=== PATIENT | male | born 1970 | race Native Hawaiian/Other Pacific Islander ===

== ENCOUNTER 2018-10-29 11:33 | Emergency (ER) | payer OTHER, SELFPAY ==
[2018-10-29 11:38] VITALS: BP 162/99; PULSE 90; RESP 14; TEMP 36.6; O2SAT 99
--- NOTE | 2018-10-29 12:18 | ED.HA ---
HPI - Headache <YADIEL HughesP-BC - Last Filed: 10/29/18 18:59> General Chief Complaint: Headache Stated Complaint: Migraine,Nausea Time Seen by Provider: 10/29/18 12:07 Source: patient and family Mode of arrival: ambulatory Limitations: no limitations History of Present Illness HPI Narrative: The patient is a 48-year-old male nonsmoker with history of migraine who presents with a chief complaint of migraine since Monday. He was recently diagnosed with strep throat treated with amoxicillin. This started on . He presents today with his . He complains of photophobia, phonophobia, nausea and vomiting. he denies any thunderclap sensation, altered mental status or confusion. notes generalized weakness and fatigue. Modalities to home attempted include Imitrex, Percocet, and Fioricet. denies any confusion, states he is acting appropriately. Related Data Home Medications Medication Instructions Recorded Confirmed oxycodone-acetaminophen [Percocet] 1 tab PO PRN PRN #0 08/13/17 10/29/18 acetaminophen [Mapap 650 mg PO TID PRN 10/29/18 10/29/18 (acetaminophen)] amoxicillin 500 mg PO [id number] 10/29/18 10/29/18 [id number]-rxzhdvdraaqjh-buxl 1 tab PO Q4H PRN 10/29/18 10/29/18 ergocalciferol (vitamin D2) 50,000 units PO QWEEK 10/29/18 10/29/18 fluticasone propionate [Flonase 2 spray INTRANASAL DAILY 10/29/18 10/29/18 Allergy Relief] gabapentin 100 - 300 mg PO BEDTIME 10/29/18 10/29/18 ibuprofen 800 mg PO TID 10/29/18 10/29/18 lidocaine 1 patch TOPICAL DAILY 10/29/18 10/29/18 lidocaine HCl [Lidocaine Viscous] 1 dose PO DIRECTED 10/29/18 10/29/18 losartan 100 mg PO DAILY 10/29/18 10/29/18 sumatriptan succinate 6 mg SUBCUT PRN PRN 10/29/18 10/29/18 Previous Rx's Medication Instructions Recorded ketorolac 10 mg PO Q6H PRN 2 Days #8 tab 10/29/18 ondansetron 4 mg PO TID-QID PRN #20 tab 10/29/18 Allergies Allergy/AdvReac Type Severity Reaction Status Date / Time codeine Allergy Intermediate HIVES Verified 10/29/18 11:41 Review of Systems <CLEMENTE Hughes - Last Filed: 10/29/18 18:59> Review of Systems GENERAL: Denies chills, fatigue, malaise, fever, sweats. HEENT: Denies sinus pain, ear pain, sore throat, difficulty swallowing, dizziness. RESPIRATORY: Denies dyspnea, cough, wheezing, hemoptysis, sputum. CARDIOVASCULAR: Denies chest pain, palpitations, orthopnea, edema, GASTROINTESTINAL: See HPI : Denies dysuria, frequency, incontinence, hematuria, urinary retention. MUSCULOSKELETAL: denies weakness, joint pain, or bony pain SKIN: Denies rash, skin lesions, or other NEUROLOGIC: See HPI PSYCHIATRIC: No concerning psychosocial issues. 12 point review of systems is negative except for those stated above PFSH <CLEMENTE Hughes - Last Filed: 10/29/18 18:59> Social History Smoking Status: Never smoker Social History Smoking Status: Never smoker Exam <CLEMENTE Hughes - Last Filed: 10/29/18 18:59> Narrative Exam Narrative: GENERAL: This is a well-nourished, well-developed patient, lying in a dark room HEAD: Atraumatic. Normocephalic. No temporal or scalp tenderness. EYES: Pupils equal round and reactive. Extraocular motions intact. No scleral icterus. No injection or drainage. no nystagmus. ENT: Nose without bleeding, purulent drainage or septal hematoma. Throat without erythema, tonsillar hypertrophy or exudate. Uvula midline. Airway patent. NECK: Trachea midline. No JVD or lymphadenopathy. Supple, nontender, no meningeal signs. CARDIOVASCULAR: Regular rate and rhythm without murmurs, gallops, or rubs. RESPIRATORY: Clear to auscultation. Breath sounds equal bilaterally. No wheezes, rales, or rhonchi. No cough. No increased respiratory effort. GASTROINTESTINAL: Abdomen soft, non-tender, nondistended. No hepato-splenomegaly, or palpable masses. No guarding. EXTREMITIES: No clubbing, cyanosis, or edema. No joint tenderness, effusion, or edema noted. BACK: Nontender without deformity or crepitance. No flank tenderness. NEURO: AOx3. Strength is equal upper and lower extremities bilaterally. Stable gait. No gross cranial nerve deficit. SKIN: No rash or erythema. Initial Vital Signs Initial Vital Signs: Vital Signs Temperature 97.9 F 10/29/18 11:38 Pulse Rate 90 10/29/18 11:38 Respiratory Rate 14 10/29/18 11:38 Blood Pressure 162/99 H 10/29/18 11:38 Pulse Oximetry 99 10/29/18 11:38 <Florinda Chance DO - Last Filed: 10/29/18 20:07> Initial Vital Signs Initial Vital Signs: Vital Signs Temperature 97.9 F 10/29/18 11:38 Pulse Rate 90 10/29/18 11:38 Respiratory Rate 14 10/29/18 11:38 Blood Pressure 162/99 H 10/29/18 11:38 Pulse Oximetry 99 10/29/18 11:38 Course <CLEMENTE Hughes - Last Filed: 10/29/18 18:59> Orders Ordered: Discontinued Medications Dexamethasone (Decadron) 10 mg IV NOW ONE Stop: 10/29/18 13:38 Last Admin: 10/29/18 13:44 Dose: 10 mg Diphenhydramine HCl (Benadryl) 50 mg IV NOW ONE Stop: 10/29/18 12:18 Last Admin: 10/29/18 12:31 Dose: 50 mg Sodium Chloride (Normal Saline 0.9%) 1,000 mls @ 1,000 mls/hr IV BOLUS ONE Stop: 10/29/18 13:16 Last Infusion: 10/29/18 13:48 Dose: 0 mls/hr Admin: 10/29/18 12:31 Dose: 1,000 mls/hr Ketorolac Tromethamine (Toradol) 30 mg IV NOW ONE Stop: 10/29/18 12:18 Last Admin: 10/29/18 12:31 Dose: 30 mg Metoclopramide HCl (Reglan) 10 mg IV NOW ONE Stop: 10/29/18 12:18 Last Admin: 10/29/18 12:31 Dose: 10 mg Sumatriptan Succinate (Imitrex) 6 mg SUBCUT NOW ONE Stop: 10/29/18 14:53 Last Admin: 10/29/18 15:01 Dose: 6 mg Vital Signs - 8 hr 10/29/18 13:11 10/29/18 14:00 10/29/18 15:00 Pulse Rate 77 73 61 Respiratory Rate 18 17 14 Blood Pressure Blood Pressure [Left Arm] 143/107 H 147/104 H 138/61 Pulse Oximetry 98 99 99 10/29/18 15:55 Pulse Rate 85 Respiratory Rate 18 Blood Pressure 156/106 H Blood Pressure [Left Arm] Pulse Oximetry 98 <Florinda Chance DO - Last Filed: 10/29/18 20:07> Orders Ordered: Discontinued Medications Dexamethasone (Decadron) 10 mg IV NOW ONE Stop: 10/29/18 13:38 Last Admin: 10/29/18 13:44 Dose: 10 mg Diphenhydramine HCl (Benadryl) 50 mg IV NOW ONE Stop: 10/29/18 12:18 Last Admin: 10/29/18 12:31 Dose: 50 mg Sodium Chloride (Normal Saline 0.9%) 1,000 mls @ 1,000 mls/hr IV BOLUS ONE Stop: 10/29/18 13:16 Last Infusion: 10/29/18 13:48 Dose: 0 mls/hr Admin: 10/29/18 12:31 Dose: 1,000 mls/hr Ketorolac Tromethamine (Toradol) 30 mg IV NOW ONE Stop: 10/29/18 12:18 Last Admin: 10/29/18 12:31 Dose: 30 mg Metoclopramide HCl (Reglan) 10 mg IV NOW ONE Stop: 10/29/18 12:18 Last Admin: 10/29/18 12:31 Dose: 10 mg Sumatriptan Succinate (Imitrex) 6 mg SUBCUT NOW ONE Stop: 10/29/18 14:53 Last Admin: 10/29/18 15:01 Dose: 6 mg Vital Signs - 8 hr 10/29/18 13:11 10/29/18 14:00 10/29/18 15:00 Pulse Rate 77 73 61 Respiratory Rate 18 17 14 Blood Pressure Blood Pressure [Left Arm] 143/107 H 147/104 H 138/61 Pulse Oximetry 98 99 99 0415/19 15:55 Pulse Rate 85 Respiratory Rate 18 Blood Pressure 156/106 H Blood Pressure [Left Arm] Pulse Oximetry 98 MDM - Headache <MARIO Hughes- - Last Filed: 10/29/18 18:59> [facility] Narrative Medical decision making narrative: The patient is a 48-year-old male with history of migraines who presents with a chief complaint of a headache. he was treated in the emergency department with IV fluid, Toradol, Reglan, Benadryl as well as dexamethasone. His headache did not resolve with this initial cocktail, so he was given Imitrex and his headache resolved. He was neurologically intact. I discussed at length with the patient and his of trying to avoid imaging in patients with repeated migraines. They were okay with this. Given that he had no red flag symptoms, I am okay with this. I discussed at length monitor for confusion, altered mental status or any red flag symptoms. patient was given a prescription of Toradol as well as Zofran. Discussed at length not combining Toradol with other NSAIDs. Patient and had no questions or concerns upon discharge. Discharge Plan Departure Patient Disposition: Home Clinical Impression: Migraine headache Qualifiers: Migraine type: unspecified Status migrainosus presence: with status migrainosus Intractability: not intractable Qualified Code(s): G43.901 - Migraine, unspecified, not intractable, with status migrainosus Discharge Date/Time: 10/29/18 16:04 Interventions: ED Discharge Assessment Last Done: 10/29/18 15:55 Instructions: DI for Migraine, DI for Headache Activity Restrictions/Additional Instructions: Today we treated your migraine with Toradol, Benadryl, Reglan and Imitrex. I have given you prescription for Toradol. This is an NSAID to take for headache. do not take it with other NSAIDs such as indomethacin or Aleve or ibuprofen. I have given you Zofran for nausea. Please follow up with your primary care provider or your headache specialist as soon as possible. Come back to the emergency department for any acute concerns such as chest pain, shortness of breath or confusion. Prescriptions: New ketorolac 10 mg tablet 10 mg PO Q6H PRN (Reason: pain) 2 Days Qty: 8 RF: 0 ondansetron 4 mg tablet,disintegrating 4 mg PO TID-QID PRN (Reason: nausea and vomiting) Qty: 20 RF: 0 No Action oxycodone-acetaminophen [Percocet] 5 MG/325 MG tablet 1 tab PO PRN PRN (Reason: pain ) Qty: 0 RF: 0 amoxicillin 500 mg capsule 500 mg PO [id number] RF: 0 acetaminophen [Mapap (acetaminophen)] 325 mg tablet 650 mg PO TID PRN (Reason: Fever Or Pain) RF: 0 ibuprofen 800 mg tablet 800 mg PO TID RF: 0 sumatriptan succinate 6 mg/0.5 mL cartridge 6 mg subcut PRN PRN (Reason: Migraine Headache) RF: 0 vbzjrlxlxu-srljgipxnqjzd-zchc 50-325-40 mg tablet 1 tab PO Q4H PRN (Reason: as directed) RF: 0 lidocaine 5 % adhesive patch,medicated 1 patch topical DAILY RF: 0 lidocaine HCl [Lidocaine Viscous] 2 % solution 1 dose PO DIRECTED RF: 0 gabapentin 100 mg capsule 100 - 300 mg PO BEDTIME RF: 0 ergocalciferol (vitamin D2) 50,000 unit capsule 50,000 units PO QWEEK RF: 0 losartan 100 mg Tablet 100 mg PO DAILY RF: 0 fluticasone propionate [Flonase Allergy Relief] 50 mcg/actuation [place],Suspension 2 spray INTRANASAL DAILY RF: 0 Referrals: Evelyn Vidal DO [Primary Care Provider] - <Florinda Chance DO - Last Filed: 10/29/18 20:07> Cosign ED Attending Jessicaature Attestation: I was immediately available in the department for consultation. This documentation has been reviewed and I agree with assessment and plan. Supervised by Florinda Chance DO
--- NOTE | 2018-10-29 12:22 | ED_ITS ---
HPI - Headache <YADIEL HughesP-BC - Last Filed: 10/29/18 18:59> General Chief Complaint: Headache Stated Complaint: Migraine,Nausea Time Seen by Provider: 10/29/18 12:07 Source: patient and family Mode of arrival: ambulatory Limitations: no limitations History of Present Illness HPI Narrative: The patient is a 48-year-old male nonsmoker with history of migraine who presents with a chief complaint of migraine since Monday. He was recently diagnosed with strep throat treated with amoxicillin. This started on . He presents today with his . He complains of photophobia, phonophobia, nausea and vomiting. he denies any thunderclap sensation, altered mental status or confusion. notes generalized weakness and fatigue. Modalities to home attempted include Imitrex, Percocet, and Fioricet. denies any confusion, states he is acting appropriately. Related Data Home Medications Medication Instructions Recorded Confirmed oxycodone-acetaminophen [Percocet] 1 tab PO PRN PRN #0 08/13/17 10/29/18 acetaminophen [Mapap 650 mg PO TID PRN 10/29/18 10/29/18 (acetaminophen)] amoxicillin 500 mg PO [id number] 10/29/18 10/29/18 [id number]-[id number]-nbgm 1 tab PO Q4H PRN 10/29/18 10/29/18 ergocalciferol (vitamin D2) 50,000 units PO QWEEK 10/29/18 10/29/18 fluticasone propionate [Flonase 2 spray INTRANASAL DAILY 10/29/18 10/29/18 Allergy Relief] gabapentin 100 - 300 mg PO BEDTIME 10/29/18 10/29/18 ibuprofen 800 mg PO TID 10/29/18 10/29/18 lidocaine 1 patch TOPICAL DAILY 10/29/18 10/29/18 lidocaine HCl [Lidocaine Viscous] 1 dose PO DIRECTED 10/29/18 10/29/18 losartan 100 mg PO DAILY 10/29/18 10/29/18 sumatriptan succinate 6 mg SUBCUT PRN PRN 10/29/18 10/29/18 Previous Rx's Medication Instructions Recorded ketorolac 10 mg PO Q6H PRN 2 Days #8 tab 10/29/18 ondansetron 4 mg PO TID-QID PRN #20 tab 10/29/18 Allergies Allergy/AdvReac Type Severity Reaction Status Date / Time codeine Allergy Intermediate HIVES Verified 10/29/18 11:41 Review of Systems <CLEMENTE Hughes - Last Filed: 10/29/18 18:59> Review of Systems GENERAL: Denies chills, fatigue, malaise, fever, sweats. HEENT: Denies sinus pain, ear pain, sore throat, difficulty swallowing, dizziness. RESPIRATORY: Denies dyspnea, cough, wheezing, hemoptysis, sputum. CARDIOVASCULAR: Denies chest pain, palpitations, orthopnea, edema, GASTROINTESTINAL: See HPI : Denies dysuria, frequency, incontinence, hematuria, urinary retention. MUSCULOSKELETAL: denies weakness, joint pain, or bony pain SKIN: Denies rash, skin lesions, or other NEUROLOGIC: See HPI PSYCHIATRIC: No concerning psychosocial issues. 12 point review of systems is negative except for those stated above PFSH <CLEMENTE Hughes - Last Filed: 10/29/18 18:59> Social History Smoking Status: Never smoker Social History Smoking Status: Never smoker Exam <CLEMENTE Hughes - Last Filed: 10/29/18 18:59> Narrative Exam Narrative: GENERAL: This is a well-nourished, well-developed patient, lying in a dark room HEAD: Atraumatic. Normocephalic. No temporal or scalp tenderness. EYES: Pupils equal round and reactive. Extraocular motions intact. No scleral icterus. No injection or drainage. no nystagmus. ENT: Nose without bleeding, purulent drainage or septal hematoma. Throat without erythema, tonsillar hypertrophy or exudate. Uvula midline. Airway patent. NECK: Trachea midline. No JVD or lymphadenopathy. Supple, nontender, no meningeal signs. CARDIOVASCULAR: Regular rate and rhythm without murmurs, gallops, or rubs. RESPIRATORY: Clear to auscultation. Breath sounds equal bilaterally. No wheezes, rales, or rhonchi. No cough. No increased respiratory effort. GASTROINTESTINAL: Abdomen soft, non-tender, nondistended. No hepato- splenomegaly, or palpable masses. No guarding. EXTREMITIES: No clubbing, cyanosis, or edema. No joint tenderness, effusion, or edema noted. BACK: Nontender without deformity or crepitance. No flank tenderness. NEURO: AOx3. Strength is equal upper and lower extremities bilaterally. Stable gait. No gross cranial nerve deficit. SKIN: No rash or erythema. Initial Vital Signs Initial Vital Signs: Vital Signs Temperature 97.9 F 10/29/18 11:38 Pulse Rate 90 10/29/18 11:38 Respiratory Rate 14 10/29/18 11:38 Blood Pressure 162/99 H 10/29/18 11:38 Pulse Oximetry 99 10/29/18 11:38 <Florinda Chance DO - Last Filed: 10/29/18 20:07> Initial Vital Signs Initial Vital Signs: Vital Signs Temperature 97.9 F 10/29/18 11:38 Pulse Rate 90 10/29/18 11:38 Respiratory Rate 14 10/29/18 11:38 Blood Pressure 162/99 H 10/29/18 11:38 Pulse Oximetry 99 10/29/18 11:38 Course <CLEMENTE Hughes - Last Filed: 10/29/18 18:59> Orders Ordered: Discontinued Medications Dexamethasone (Decadron) 10 mg IV NOW ONE Stop: 10/29/18 13:38 Last Admin: 10/29/18 13:44 Dose: 10 mg Diphenhydramine HCl (Benadryl) 50 mg IV NOW ONE Stop: 10/29/18 12:18 Last Admin: 10/29/18 12:31 Dose: 50 mg Sodium Chloride (Normal Saline 0.9%) 1,000 mls @ 1,000 mls/hr IV BOLUS ONE Stop: 10/29/18 13:16 Last Infusion: 10/29/18 13:48 Dose: 0 mls/hr Admin: 10/29/18 12:31 Dose: 1,000 mls/hr Ketorolac Tromethamine (Toradol) 30 mg IV NOW ONE Stop: 10/29/18 12:18 Last Admin: 10/29/18 12:31 Dose: 30 mg Metoclopramide HCl (Reglan) 10 mg IV NOW ONE Stop: 10/29/18 12:18 Last Admin: 10/29/18 12:31 Dose: 10 mg Sumatriptan Succinate (Imitrex) 6 mg SUBCUT NOW ONE Stop: 10/29/18 14:53 Last Admin: 10/29/18 15:01 Dose: 6 mg Vital Signs - 8 hr 10/29/18 13:11 10/29/18 14:00 10/29/18 15:00 Pulse Rate 77 73 61 Respiratory Rate 18 17 14 Blood Pressure Blood Pressure [Left Arm] 143/107 H 147/104 H 138/61 Pulse Oximetry 98 99 99 10/29/18 15:55 Pulse Rate 85 Respiratory Rate 18 Blood Pressure 156/106 H Blood Pressure [Left Arm] Pulse Oximetry 98 <Florinda Chance DO - Last Filed: 10/29/18 20:07> Orders Ordered: Discontinued Medications Dexamethasone (Decadron) 10 mg IV NOW ONE Stop: 10/29/18 13:38 Last Admin: 10/29/18 13:44 Dose: 10 mg Diphenhydramine HCl (Benadryl) 50 mg IV NOW ONE Stop: 10/29/18 12:18 Last Admin: 10/29/18 12:31 Dose: 50 mg Sodium Chloride (Normal Saline 0.9%) 1,000 mls @ 1,000 mls/hr IV BOLUS ONE Stop: 10/29/18 13:16 Last Infusion: 10/29/18 13:48 Dose: 0 mls/hr Admin: 10/29/18 12:31 Dose: 1,000 mls/hr Ketorolac Tromethamine (Toradol) 30 mg IV NOW ONE Stop: 10/29/18 12:18 Last Admin: 10/29/18 12:31 Dose: 30 mg Metoclopramide HCl (Reglan) 10 mg IV NOW ONE Stop: 10/29/18 12:18 Last Admin: 10/29/18 12:31 Dose: 10 mg Sumatriptan Succinate (Imitrex) 6 mg SUBCUT NOW ONE Stop: 10/29/18 14:53 Last Admin: 10/29/18 15:01 Dose: 6 mg Vital Signs - 8 hr 10/29/18 13:11 10/29/18 14:00 10/29/18 15:00 Pulse Rate 77 73 61 Respiratory Rate 18 17 14 Blood Pressure Blood Pressure [Left Arm] 143/107 H 147/104 H 138/61 Pulse Oximetry 98 99 99 0415/19 15:55 Pulse Rate 85 Respiratory Rate 18 Blood Pressure 156/106 H Blood Pressure [Left Arm] Pulse Oximetry 98 MDM - Headache <MARIO Hughes- - Last Filed: 10/29/18 18:59> [facility] Narrative Medical decision making narrative: The patient is a 48-year-old male with history of migraines who presents with a chief complaint of a headache. he was treated in the emergency department with IV fluid, Toradol, Reglan, Benadryl as well as dexamethasone. His headache did not resolve with this initial cocktail, so he was given Imitrex and his headache resolved. He was neurologically intact. I discussed at length with the patient and his of trying to avoid imaging in patients with repeated migraines. They were okay with this. Given that he had no red flag symptoms, I am okay with this. I discussed at length monitor for confusion, altered mental status or any red flag symptoms. patient was given a prescription of Toradol as well as Zofran. Discussed at length not combining Toradol with other NSAIDs. Patient and had no questions or concerns upon discharge. Discharge Plan Departure Patient Disposition: Home Clinical Impression: Migraine headache Qualifiers: Migraine type: unspecified Status migrainosus presence: with status migrainosus Intractability: not intractable Qualified Code(s): G43.901 - Migraine, unspecified, not intractable, with status migrainosus Discharge Date/Time: 10/29/18 16:04 Interventions: ED Discharge Assessment Last Done: 10/29/18 15:55 Instructions: DI for Migraine, DI for Headache Activity Restrictions/Additional Instructions: Today we treated your migraine with Toradol, Benadryl, Reglan and Imitrex. I have given you prescription for Toradol. This is an NSAID to take for headache. do not take it with other NSAIDs such as indomethacin or Aleve or ibuprofen. I have given you Zofran for nausea. Please follow up with your primary care provider or your headache specialist as soon as possible. Come back to the emergency department for any acute concerns such as chest pain, shortness of breath or confusion. Prescriptions: New ketorolac 10 mg tablet 10 mg PO Q6H PRN (Reason: pain) 2 Days Qty: 8 RF: 0 ondansetron 4 mg tablet,disintegrating 4 mg PO TID-QID PRN (Reason: nausea and vomiting) Qty: 20 RF: 0 No Action oxycodone-acetaminophen [Percocet] 5 MG/325 MG tablet 1 tab PO PRN PRN (Reason: pain ) Qty: 0 RF: 0 amoxicillin 500 mg capsule 500 mg PO [id number] RF: 0 acetaminophen [Mapap (acetaminophen)] 325 mg tablet 650 mg PO TID PRN (Reason: Fever Or Pain) RF: 0 ibuprofen 800 mg tablet 800 mg PO TID RF: 0 sumatriptan succinate 6 mg/0.5 mL cartridge 6 mg subcut PRN PRN (Reason: Migraine Headache) RF: 0 iopasdcebh-fkeojbquxtyoy-oxug 50-325-40 mg tablet 1 tab PO Q4H PRN (Reason: as directed) RF: 0 lidocaine 5 % adhesive patch,medicated 1 patch topical DAILY RF: 0 lidocaine HCl [Lidocaine Viscous] 2 % solution 1 dose PO DIRECTED RF: 0 gabapentin 100 mg capsule 100 - 300 mg PO BEDTIME RF: 0 ergocalciferol (vitamin D2) 50,000 unit capsule 50,000 units PO QWEEK RF: 0 losartan 100 mg Tablet 100 mg PO DAILY RF: 0 fluticasone propionate [Flonase Allergy Relief] 50 mcg/actuation Spra y,Suspension 2 spray INTRANASAL DAILY RF: 0 Referrals: Evelyn Vidal DO [Primary Care Provider] - <Florinda Chance DO - Last Filed: 10/29/18 20:07> Cosign ED Attending Jessicaature Attestation: I was immediately available in the department for consultation. This docum entation has been reviewed and I agree with assessment and plan. Supervised by Florinda Chance DO
[2018-10-29] MEDS: SODIUM CHLORIDE 0.9% 1,000 ML 1000 ML IV (12:31)
[2018-10-29] MEDS: KETOROLAC 60 MG/2 ML VIAL 30 MG IV (12:31)
[2018-10-29] MEDS: diphenhydrAMINE 50 MG/ML VIAL IV (12:31)
[2018-10-29] MEDS: METOCLOPRAMIDE 10 MG/2 ML INJ IV (12:31)
[2018-10-29 13:11] VITALS: BP 143/107; PULSE 77; RESP 18; O2SAT 98
[2018-10-29] MEDS: DEXAMETHASONE 10 MG/ML VIAL IV (13:44)
[2018-10-29 14:00] VITALS: BP 147/104; PULSE 73; RESP 17; O2SAT 99
[2018-10-29 15:00] VITALS: BP 138/61; PULSE 61; RESP 14; O2SAT 99
[2018-10-29] MEDS: SUMAtriptan 6 MG/0.5 ML VIAL SUBCUT (15:01)
[2018-10-29 15:55] VITALS: BP 156/106; PULSE 85; RESP 18; O2SAT 98
== END 2018-10-29 16:04 | disposition home or self-care (01) ==
PROVIDERS: Emergency Provider Nurse Practitioner Family; PCP Family Medicine
DX: G43.901 Migraine, unspecified, not intractable, with status migrainosus (principal)
CPT/HCPCS: 36591; 96361; 96372; 96374; 96375; 99283; 99284; J1100; J1200; J1885; J2765; J3030

== ENCOUNTER 2019-04-10 16:35 | Emergency (ER) | payer OTHER, SELFPAY ==
[2019-04-10 16:35] VITALS: BP 157/117; PULSE 79; RESP 18; TEMP 36.8; O2SAT 99; BMI 28.1
--- NOTE | 2019-04-10 16:52 | DI.RAD.S_ITS ---
PROCEDURE: XR ANKLE RT MIN 3V INDICATIONS: injury TECHNIQUE: 3 views of the ankle were acquired. COMPARISON: None. FINDINGS: Bones: There is moderate lateral malleolar soft tissue swelling without underlying fracture or dislocation. Tibiotalar joint is maintained. There is a corticated ossification over the distal tip of the medial malleolus likely chronic in etiology. No significant medial malleolar soft tissue edema. Mild degenerative changes of the tibiotalar joint with suggestion of subchondral lucency anteriorly best seen on the lateral view. This is likely chronic in etiology. No suspicious bony lesions. Tiny plantar calcaneal spur. Soft tissues: Small tibiotalar joint effusion. Achilles tendon appears normal. IMPRESSION: 1. Moderate lateral malleolar soft tissue edema without underlying fracture or dislocation. 2. Corticated ossification adjacent to the distal tip of the medial malleolus likely chronic in etiology. Recommend excluding point tenderness in this area. 3. Small tibiotalar joint effusion. 4. Tibiotalar degenerative change with small subchondral lucency anteriorly best seen on the lateral projection. This is likely chronic in etiology. Dictated by: Lee Maya M.D. on 04/10/2019 at 17:13 Approved by: Lee Maya M.D. on 04/10/2019 at 17:16
--- NOTE | 2019-04-10 17:12 | ED_ITS ---
HPI - Extremity Injury (Lower) <Florinda Ryan, [employer] - Last Filed: 04/10/19 18:05> General Chief Complaint: Extremity Injury, Lower Stated Complaint: twisted his right ankle at work Time Seen by Provider: 04/10/19 16:49 Source: patient Mode of arrival: Ambulatory Limitations: no limitations History of Present Illness HPI Narrative: The patient is a 48 year nonsmoker with history of migraines who presents with a chief complaint of right ankle pain. He states that he was caring a goal post, and twisted his ankle, and rotated in. He states that he has history of ligamentous repair on that ankle. He took migraine medication with 100 mg of ibuprofen at 11:30 a.m. this morning. He states the injury happened at 2:00 p.m.. He was able to ambulate after states he is able to move all toes. Decreased range of motion of ankle per patient. Denies any other injuries from the incident. Related Data Home Medications Medication Instructions Recorded Confirmed oxycodone-acetaminophen [Percocet] 1 tab PO PRN PRN #0 08/13/17 10/29/18 acetaminophen [Mapap 650 mg PO TID PRN 10/29/18 10/29/18 (acetaminophen)] [id number] 1 tab PO Q4H PRN 10/29/18 10/29/18 ergocalciferol (vitamin D2) 50,000 units PO QWEEK 10/29/18 10/29/18 fluticasone propionate [Flonase 2 spray INTRANASAL DAILY 10/29/18 10/29/18 Allergy Relief] gabapentin 100 - 300 mg PO BEDTIME 10/29/18 10/29/18 lidocaine 1 patch TOPICAL DAILY 10/29/18 04/10/19 lidocaine HCl [Lidocaine Viscous] 1 dose PO DIRECTED 10/29/18 10/29/18 losartan 100 mg PO DAILY 10/29/18 10/29/18 sumatriptan succinate 6 mg SUBCUT PRN PRN 10/29/18 10/29/18 clonidine 0.2 mg TOPICAL QWEEK 04/10/19 04/10/19 ibuprofen 800 mg PO TID 04/10/19 04/10/19 prazosin 2 mg PO DAILY 04/10/19 04/10/19 Previous Rx's Medication Instructions Recorded ondansetron 4 mg PO TID-QID PRN #20 tab 10/29/18 Allergies Allergy/AdvReac Type Severity Reaction Status Date / Time codeine Allergy Intermediate HIVES Verified 10/29/18 11:41 Review of Systems <CLEMENTE Hughes - Last Filed: 04/10/19 18:05> Review of Systems Narrative: GENERAL: Denies chills, fatigue, malaise, fever, sweats. HEENT: Denies sinus pain, ear pain, sore throat, difficulty swallowing, dizziness. RESPIRATORY: Denies dyspnea, cough, wheezing, hemoptysis, sputum. CARDIOVASCULAR: Denies chest pain, palpitations, orthopnea, edema, GASTROINTESTINAL: Denies nausea, vomiting, abdominal pain, diarrhea, constipation, melena. : Denies dysuria, frequency, incontinence, hematuria, urinary retention. MUSCULOSKELETAL: See HPI SKIN: Denies rash, skin lesions, or other NEUROLOGIC: Denies weakness, headache, numbness, change in speech, confusion, seizures, incoordination. PSYCHIATRIC: No concerning psychosocial issues. 12 point review of systems is negative except for those stated above PFSH <CLEMENTE Hughes - Last Filed: 04/10/19 18:05> Social History Smoking Status: Never smoker Social History Smoking Status: Never smoker Exam <CLEMENTE Hughes - Last Filed: 04/10/19 18:05> Narrative Exam Narrative: GENERAL: This is a well-nourished, well-developed patient, no acute distress HEAD: Atraumatic. Normocephalic. No temporal or scalp tenderness. EYES: Pupils equal round and reactive. Extraocular motions intact. No scleral icterus. No injection or drainage. ENT: Nose without bleeding, purulent drainage or septal hematoma. Throat without erythema, tonsillar hypertrophy or exudate. Uvula midline. Airway patent. NECK: Trachea midline. No JVD or lymphadenopathy. Supple, nontender, no meningeal signs. RESPIRATORY: No cough. No increased respiratory effort. No accessory muscle use. EXTREMITIES: Positive pedal pulses noted right foot. Capillary refill less than 2 seconds all toes right foot. Able to flex and extend right ankle. Able to rotate ankle in and out, but reduced range of motion. Swelling noted to lateral malleolus. BACK: Nontender without deformity or crepitance. No flank tenderness. NEURO: AOx3. SKIN: Slight ecchymosis noted on right ankle, lateral aspect Initial Vital Signs Initial Vital Signs: Vital Signs Temperature 98.2 F 04/10/19 16:35 Pulse Rate 79 04/10/19 16:35 Respiratory Rate 18 04/10/19 16:35 Blood Pressure 157/117 H 04/10/19 16:35 Pulse Oximetry 99 04/10/19 16:35 <Aurelia Alexander DO - Last Filed: 04/13/19 07:16> Initial Vital Signs Initial Vital Signs: Vital Signs Temperature 98.2 F 04/10/19 16:35 Pulse Rate 79 04/10/19 16:35 Respiratory Rate 18 04/10/19 16:35 Blood Pressure 157/117 H 04/10/19 16:35 Pulse Oximetry 99 04/10/19 16:35 Course <CLEMENTE Hughes - Last Filed: 04/10/19 18:05> Orders Ordered: ED Orders 04/10/19 16:52 XR ankle RT min 3V Stat Vital Signs Vital signs: Vital Signs - 8 hr 04/10/19 16:35 Temperature 98.2 F Pulse Rate 79 Respiratory Rate 18 Blood Pressure 157/117 H Pulse Oximetry 99 <Aurelia Alexander DO - Last Filed: 04/13/19 07:16> Orders Ordered: ED Orders 04/10/19 16:52 XR ankle RT min 3V Stat Vital Signs Vital signs: Vital Signs - 8 hr 04/10/19 16:35 Temperature 98.2 F Pulse Rate 79 Respiratory Rate 18 Blood Pressure 157/117 H Pulse Oximetry 99 MDM - Extremity Injury (Lower) <CLEMENTE Hughes - Last Filed: 04/10/19 18:05> Imaging Data Ankle x-ray: Radiologist's impression: IMPRESSION: 1. Moderate lateral malleolar soft tissue edema without underlying fracture or dislocation. 2. Corticated ossification adjacent to the distal tip of the medial malleolus likely chronic in etiology. Recommend excluding point tenderness in this area. 3. Small tibiotalar joint effusion. 4. Tibiotalar degenerative change with small subchondral lucency anteriorly best seen on the lateral projection. This is likely chronic in etiology. MDM Narrative Medical decision making narrative: The patient is a 48-year-old male who presents with a chief complaint of ankle pain after twisting it at work. He states he was caring a goal post, rotated in. He does have a history of a ligamentous injury to that ankle. He is able to flex and extend his ankle, does have noticeable swelling. He has a negative x-ray for any acute findings. He is neurovascularly intact. I discussed at length rest ice compression elev ation. Encourage PCP follow-up in the next few days, especially given that he has had surgery on this ankle before. Discussed at length we back to the emergency department for any acute findings. Offered Gerson wrap, patient states he can do it at home. No questions or concerns upon discharge. Discharge Plan Departure Patient Disposition: Home Clinical Impression: Ankle sprain and strain Acute ankle pain Qualifiers: Laterality: right Qualified Code(s): M25.571 - Pain in right ankle and joints of right foot Discharge Date/Time: 04/10/19 18:09 Instructions: DI for Ankle Sprain, How To Perform RICE (Rest, Ice, Compress, Elevate), DI for Ankle Pain Activity Restrictions/Additional Instructions: Your x-ray shows: IMPRESSION: 1. Moderate lateral malleolar soft tissue edema without underlying fracture or dislocation. 2. Corticated ossification adjacent to the distal tip of the medial malleolus likely chronic in etiology. Recommend excluding point tenderness in this area. 3. Small tibiotalar joint effusion. 4. Tibiotalar degenerative change with small subchondral lucency anteriorly best seen on the lateral projection. This is likely chronic in etiology. In a nutshell, this shows no acute fracture but shows several chronic issues. Please use rest ice compression elevation as well as [id number] pain medications as needed and able. Please follow up with primary care provider. Please come back to the emergency department for any acute concerns Prescriptions: No Action oxycodone-acetaminophen [Percocet] 5 MG/325 MG tablet 1 tab PO PRN PRN (Reason: pain ) Qty: 0 RF: 0 acetaminophen [Mapap (acetaminophen)] 325 mg tablet 650 mg PO TID PRN (Reason: Fever Or Pain) RF: 0 sumatriptan succinate 6 mg/0.5 mL cartridge 6 mg subcut PRN PRN (Reason: Migraine Headache) RF: 0 hzfmjsiyff-bpxgcxkrkymgt-eted 50-325-40 mg tablet 1 tab PO Q4H PRN (Reason: as directed) RF: 0 lidocaine 5 % adhesive patch,medicated 1 patch topical DAILY RF: 0 lidocaine HCl [Lidocaine Viscous] 2 % solution 1 dose PO DIRECTED RF: 0 gabapentin 100 mg capsule 100 - 300 mg PO BEDTIME RF: 0 ergocalciferol (vitamin D2) 50,000 unit capsule 50,000 units PO QWEEK RF: 0 losartan 100 mg Tablet 100 mg PO DAILY RF: 0 fluticasone propionate [Flonase Allergy Relief] 50 mcg/actuation [place],Suspension 2 spray INTRANASAL DAILY RF: 0 ondansetron 4 mg tablet,disintegrating 4 mg PO TID-QID PRN (Reason: nausea and vomiting) Qty: 20 RF: 0 clonidine 0.2 mg/24 hr patch weekly 0.2 mg topical QWEEK RF: 0 ibuprofen 400 mg tablet 800 mg PO TID RF: 0 prazosin 2 mg capsule 2 mg PO DAILY RF: 0 Referrals: Evelyn Vidal DO [Primary Care Provider] -
[2019-04-10 18:08] VITALS: BP 160/109; PULSE 71; O2SAT 98
== END 2019-04-10 18:09 | disposition home or self-care (01) ==
PROVIDERS: Emergency Provider Nurse Practitioner Family; PCP Family Medicine
DX: S93.401A Sprain of unspecified ligament of right ankle, initial encounter (principal); S96.911A Strain of unspecified muscle and tendon at ankle and foot level, right foot, initial encounter; M25.571 Pain in right ankle and joints of right foot; Y99.0 Civilian activity done for income or pay
CPT/HCPCS: 73610; 99282; 99283

== ENCOUNTER → 2019-05-02 16:40 | Outpatient (CLI) | payer OTHER, SELFPAY ==
--- NOTE | 2019-05-02 | DI.MRI.S_ITS ---
PROCEDURE: MR ANKLE RT WO CON INDICATIONS: RIGHT ANKLE PAIN POST INJURY TECHNIQUE: Noncontrast sagittal T1 spin echo and T2 fast spin echo with fat saturation, axial proton density fast spin echo and T2 fast spin echo with fat saturation, coronal T1 spin echo and T2 fast spin echo with fat saturation through the ankle/hindfoot. COMPARISON: [facility], CR, XR ANKLE RT MIN 3V, 04/10/2019, 16:52. FINDINGS: Image quality: Excellent. Bones and joints: Subcutaneous edema overlying the medial and lateral malleoli. No discrete fracture line however there is marrow edema in the subchondral lateral talar dome which raises the possibility of contusion. No hindfoot coalitions. No pathologic joint effusions. Medial structures: The posterior tibialis, flexor digitorum longus, and flexor hallucis longus tendons are intact. Posterior tibialis and flexor digitorum longus tenosynovitis. The posterior tibial neurovascular bundle appears normal within the tarsal tunnel, without extrinsic mass effect. The deep layer (anterior and posterior tibiotalar ligaments) and superficial layer (tibionavicular, tibiospring, and tibiocalcaneal ligaments) of the deltoid ligament appear normal. The spring ligament components (superomedial calcaneonavicular, medioplantar oblique calcaneonavicular, and inferoplantar longitudinal ligaments) are intact. Lateral structures: The anterior talofibular ligament not well seen and there are nearby degenerative osseous changes suggesting of chronic rupture The calcaneofibular, and posterior talofibular ligaments appear intact. More superiorly, the anterior and posterior tibiofibular ligaments appear intact, as is the intermalleolar ligament. The tibiofibular syndesmosis is normal in width at 2 mm or less. The peroneus longus and brevis tendons demonstrate normal location and morphology. Adjacent bony peroneal tubercle and retrotrochlear prominence are normal in size. The sinus tarsi demonstrates normal fatty signal, without edema, fibrosis, or cyst formation. Visualized sinus tarsi components (cervical ligament, interosseous talocalcaneal ligament, roots of the inferior extensor retinaculum) appear normal. The calcaneonavicular and calcaneocuboid components of the bifurcate ligament appear intact. The dorsal calcaneocuboid ligament appears intact. Anterior structures: The tibialis anterior, extensor hallucis longus, and extensor digitorum longus tendons appear intact. The dorsal talonavicular ligament appears intact. Posterior and plantar structures: Achilles tendon is intact. Mild medial band plantar fasciitis IMPRESSION: Focal marrow edema involving the lateral talar dome raising possibility of marrow contusion. Soft tissue edema overlying the lateral and medial malleoli. Rupture of the anterior talofibular ligament although this could be subacute/chronic. Mild medial band plantar fasciitis. Mild posterior tibialis and flexor digitorum longus tenosynovitis. Dictated by: Modesto Flor M.D. on 05/03/2019 at 10:27 Approved by: Modesto Flor M.D. on 05/03/2019 at 10:37
== END ==
PROVIDERS: PCP Family Medicine; Visit Provider Family Medicine
DX: M25.572 Pain in left ankle and joints of left foot (principal); S93.491A Sprain of other ligament of right ankle, initial encounter; M65.871 Other synovitis and tenosynovitis, right ankle and foot; R60.0 Localized edema; M72.2 Plantar fascial fibromatosis
CPT/HCPCS: 73721

== ENCOUNTER → 2019-09-20 11:55 | Outpatient (CLI) | payer OTHER, SELFPAY ==
--- NOTE | 2019-09-20 | DI.MRI.S_ITS ---
PROCEDURE: MR HEAD/BRAIN WO/W CON INDICATIONS: Chronic migraine without aura, not intractable, wi TECHNIQUE: Noncontrast axial T1 spin echo, axial T2 fast spin echo, sagittal and axial FLAIR, coronal T2 fast spin echo, axial gradient echo, axial diffusion and ADC through the brain. After the administration of contrast, axial and coronal 3D VIBE or T1 spin echo with fat saturation through the brain. COMPARISON: None. FINDINGS: Image quality: Excellent. CSF Spaces: Basal cisterns are patent. No extra-axial fluid collections. Ventricles are normal in size and shape. Brain: No midline shift. No intracranial bleeds or masses. No abnormal intracranial enhancement. The brainstem appears normal. Diffusion-weighted images demonstrate no acute ischemic insults. No chronic ischemic insults. Normal intravascular flow voids are present. Incidental right frontal parietal presumed perivascular space image 17/8. Skull and face: Calvarial marrow is normal in signal. Orbits appear normal. Sinuses: Mucous retention cyst seen in the floor of the right maxillary antrum. There is also a small mucous retention cyst or polyp seen in the left maxillary sinus. IMPRESSION: Bilateral maxillary sinus disease, right greater left. No evidence of acute ischemia. No acute intracranial signal abnormality or enhancement. Dictated by: Modesto Flor M.D. on 09/20/2019 at 13:26 Approved by: Modesto Flor M.D. on 09/20/2019 at 13:35
== END ==
PROVIDERS: PCP Family Medicine; Referring Provider Family Medicine; Visit Provider Family Medicine
DX: G43.709 Chronic migraine without aura, not intractable, without status migrainosus (principal); R32 Unspecified urinary incontinence; J32.0 Chronic maxillary sinusitis
CPT/HCPCS: 70553

== ENCOUNTER 2021-11-12 10:43 | Emergency (ER) | payer OTHER, SELFPAY ==
[2021-11-12] VITALS (22 sets, daily range): BP systolic 126–171; BP diastolic 72–113; PULSE 69–95; RESP 14–29; TEMP 36.9; O2SAT 94–99; BMI 30.1
--- NOTE | 2021-11-12 10:56 | DI.RAD.S_ITS ---
PROCEDURE: XR CHEST 1V INDICATIONS: chest pain TECHNIQUE: One view of the chest was acquired. COMPARISON: None. FINDINGS: Surgical changes and devices: None. Lungs and pleura: Lungs are clear. No pleural effusions or pneumothorax. Mediastinum: Mediastinal contours appear normal. Heart size is normal. Bones and chest wall: No suspicious bony lesions. Overlying soft tissues appear unremarkable. IMPRESSION: No acute cardiopulmonary pathology. Dictated by: Aravind Sierra M.D. on 11/12/2021 at 11:45 Approved by: Aravind Sierra M.D. on 11/12/2021 at 11:45
--- NOTE | 2021-11-12 11:00 | ED_ITS ---
HPI - Chest Pain General Chief Complaint: Chest Pain Stated Complaint: chest pain left side under pec. Time Seen by Provider: 11/12/21 10:54 Source: patient Mode of arrival: Ambulatory Limitations: no limitations History of Present Illness HPI narrative: Patient here for left-sided chest pain that started 1 hour ago at rest while he was on the phone at work. Patient primary care is at the [facility]. Patient has history of high blood pressure and high cholesterol. Is on medications for these. Never had stress test in the past. Does not smoke. Has family history of coronary disease. Of recently patient states has had a lot of fatigue. Also has had intermittent left arm numbness discomfort. None at this time. No diaphoresis no syncope no nausea. Pain is focal at the left inframammary area. Increase with leaning forward. Also pain with leaning forward and taking deep breath Related Data Home Medications Medication Instructions Recorded Confirmed oxycodone-acetaminophen 5 mg-325 1 tab PO PRN PRN #0 08/13/17 10/29/18 mg tablet (Percocet) acetaminophen 325 mg tablet 650 mg PO TID PRN 10/29/18 10/29/18 [id number]-cdjrgyzwnllet-tknswtje 1 tab PO Q4H PRN 10/29/18 10/29/18 50 mg-325 mg-40 mg tablet ergocalciferol (vitamin D2) 1,250 50,000 units PO QWEEK 10/29/18 10/29/18 mcg (50,000 unit) capsule fluticasone propionate 50 2 spray INTRANASAL DAILY 10/29/18 10/29/18 mcg/actuation nasal spray,suspension (Flonase Allergy Relief) gabapentin 100 mg capsule 100 - 300 mg PO BEDTIME 10/29/18 10/29/18 lidocaine 5 % topical patch 1 patch TOPICAL DAILY 10/29/18 04/10/19 lidocaine HCl 2 % mucosal solution 1 dose PO DIRECTED 10/29/18 10/29/18 losartan 100 mg tablet 100 mg PO DAILY 10/29/18 10/29/18 sumatriptan succinate 6 mg/0.5 mL 6 mg SUBCUT PRN PRN 10/29/18 10/29/18 subcutaneous cartridge (refill) clonidine 0.2 mg/24 hr weekly 0.2 mg TOPICAL QWEEK 04/10/19 04/10/19 transdermal patch ibuprofen 400 mg tablet 800 mg PO TID 04/10/19 04/10/19 prazosin 2 mg capsule 2 mg PO DAILY 04/10/19 04/10/19 Previous Rx's Medication Instructions Recorded ondansetron 4 mg disintegrating 4 mg PO TID-QID PRN #20 tab 10/29/18 tablet Allergies Allergy/AdvReac Type Severity Reaction Status Date / Time codeine Allergy Intermediate HIVES Verified 10/29/18 11:41 Review of Systems Review of Systems Narrative: GENERAL: Denies chills, fatigue, malaise, fever, sweats. HEENT: Denies sinus pain, ear pain, sore throat RESPIRATORY: Denies dyspnea, cough CARDIOVASCULAR: Positive chest pain, negative palpitations GASTROINTESTINAL: Denies nausea, vomiting, abdominal pain : Denies dysuria, frequency, hematuria MUSCULOSKELETAL: denies muscle or bony pain SKIN: Denies rash, skin lesions NEUROLOGIC: Denies weakness, numbness ROS Unobtainable: All systems reviewed & are unremarkable except as noted in HPI and below Patient History Social History Smoking Status: Never smoker Smoking Status: Never smoker alcohol intake frequency: 0-2 drinks per day Substance Use Type: does not use Exam Narrative Exam Narrative: GENERAL: in no distress, not toxic not dyspneic HEAD: Normocephalic. EYES: Pupils equal round No scleral icterus. ENT: Mucous membranes moist. NECK: Trachea midline. CARDIOVASCULAR: Regular rate and rhythm without murmurs, no carotid bruit. Nontender chest wall. RESPIRATORY: Clear to auscultation. Breath sounds equal bilaterally. No wheezes, rales, or rhonchi. GASTROINTESTINAL: Abdomen soft, non-tender EXTREMITIES: No gross deformities. BACK: No flank tenderness. NEURO: AOx4. SKIN: Warm and dry PSYCH: Not anxious, is cooperative Initial Vital Signs Initial Vital Signs: Vital Signs Pulse Rate 95 H 11/12/21 10:50 Respiratory Rate 20 11/12/21 10:50 Pulse Oximetry 98 11/12/21 10:50 Course Course Course Narrative: Appropriate for transfer after discussion with Cardiology Orders Ordered: Discontinued Medications Aspirin (Aspirin 81 Mg Chew Tab) 324 mg PO NOW ONE Stop: 11/12/21 11:00 Last Admin: 11/12/21 11:04 Dose: 324 mg Documented by: CONG Nitroglycerin (Nitroglycerin Oint 1 Inch/Gm Oint...G.) 0.5 inch TOP NOW ONE Stop: 11/12/21 11:00 Last Admin: 11/12/21 11:02 Dose: 0.5 inch Documented by: CONG Reevaluation(s) Reevaluation #1: Reviewed with patient plans. He agrees for transfer to [facility] Emergency Department for CT scan. At this time no distress. No chest pain at rest. Still gets slight discomfort with leaning forward Time: 15:56 Consultations Consultation #1: Spoke with [facility] Dr. Burleson, at this time him patient essentially low risk, would be appropriate to transfer to their emergency department for cardiac CT scan and he will read the CT scan. If normal he will be discharged home Time: 15:45 Consultation #2: Spoke with [facility] Emergency Department Dr. Borja, agrees to accept patient. Time: 15:55 Vital Signs Vital signs: Vital Signs - 8 hr 11/12/21 10:50 11/12/21 10:51 11/12/21 10:52 Temperature 98.4 F Pulse Rate 95 H 89 94 H Respiratory Rate 20 18 29 H Blood Pressure 139/72 139/87 Pulse Oximetry 98 98 97 11/12/21 11:00 11/12/21 11:02 11/12/21 11:04 Temperature Pulse Rate 90 87 87 Respiratory Rate 27 H 22 Blood Pressure 143/76 H 143/76 H Pulse Oximetry 97 97 11/12/21 11:30 11/12/21 12:00 11/12/21 12:30 Temperature Pulse Rate 84 80 88 Respiratory Rate 21 21 19 Blood Pressure 136/87 137/86 133/77 Pulse Oximetry 96 96 96 11/12/21 13:00 11/12/21 13:30 11/12/21 14:00 Temperature Pulse Rate 79 80 69 Respiratory Rate 17 19 16 Blood Pressure 131/89 135/92 H 129/83 Pulse Oximetry 94 98 96 11/12/21 14:30 11/12/21 15:00 11/12/21 15:30 Temperature Pulse Rate 79 81 81 Respiratory Rate 19 17 21 Blood Pressure 128/93 H 127/85 126/74 Pulse Oximetry 97 99 96 MDM - Chest Pain Differential Diagnosis Differential diagnosis: Likely pneumothorax, stable angina, unstable angina pectoris, atypical chest pain, st elevation myocardial infarction, costochondritis and chest pain Lab Data Result diagrams: 11/12/21 10:58 11/12/21 10:58 Labs: Lab Results 11/12/21 11/12/21 11/12/21 Range/Units 10:58 10:58 10:58 WBC 9.3 (4.5-11.0) X10^3/uL RBC 5.66 (4.5-5.9) X10^6/uL Hgb 15.5 (13.5-17.5) g/dL Hct 47.2 (41-53) % MCV 83.3 (80-100) fL MCH 27.3 (26-34) PG MCHC 32.8 (30-36) % RDW 14.4 (11.6-14.8) % Plt Count 223 (150-400) X10^3/uL Neut % (Auto) 43.7 L (50-75) % Lymph % (Auto) 44.4 H (25-40) % [place] % (Auto) 9.1 (3-14) % Eos % (Auto) 2.0 (2-4) % Baso % (Auto) 0.8 (0-2) % Neut # (Auto) 4100 (8900-9532) /uL Lymph # (Auto) 4100 (0124-5849) /uL [place] # (Auto) 800 (0-900) /uL Eos # (Auto) 200 (0-450) /uL Baso # (Auto) 100 (0-100) /uL PT 11.5 (10.1-12.7) SECONDS INR 1.0 (0.9-1.3) APTT (26.4-36.2) SECONDS Sodium 140 (137-145) mmol/L Potassium 4.1 (3.4-5.1) mmol/L Chloride 104 (98-107) mmol/L Carbon Dioxide 26 (22-32) mmol/L BUN 15 (9-20) mg/dL Creatinine 0.93 (0.66-1.25) mg/dL Estimated GFR > 60 (>60) mL/min BUN/Creatinine Ratio 16.1 (6-22) Glucose 89 (70-100) mg/dL Calcium 10.0 (8.4-10.2) mg/dL Magnesium 2.0 (1.6-2.3) mg/dL Total Bilirubin 0.5 (0.2-1.3) mg/dL AST 38 (17-59) IU/L ALT 41 (<50) IU/L Alkaline Phosphatase 80 (38-126) U/L Total Creatine Kinase 238 H (55-170) U/L CK-MB (CK-2) 1.61 (<2.37) ng/mL CK-MB (CK-2) Rel Index 0.7 L (1.5-5.0) % Troponin I < 0.012 (0.01-0.034) ng/mL Total Protein 8.8 H (6.3-8.2) g/dL Albumin 4.9 (3.5-5.0) g/dL Globulin 3.9 (1.7-4.1) g/dL Albumin/Globulin Ratio 1.3 (1.0-2.8) Lipase 108 (23-300) U/L SARS-CoV-2 (PCR) (Negative) 11/12/21 11/12/21 Range/Units 10:58 11:48 WBC (4.5-11.0) X10^3/uL RBC (4.5-5.9) X10^6/uL Hgb (13.5-17.5) g/dL Hct (41-53) % MCV (80-100) fL MCH (26-34) PG MCHC (30-36) % RDW (11.6-14.8) % Plt Count (150-400) X10^3/uL Neut % (Auto) (50-75) % Lymph % (Auto) (25-40) % [place] % (Auto) (3-14) % Eos % (Auto) (2-4) % Baso % (Auto) (0-2) % Neut # (Auto) (4037-8518) /uL Lymph # (Auto) (6040-9499) /uL [place] # (Auto) (0-900) /uL Eos # (Auto) (0-450) /uL Baso # (Auto) (0-100) /uL PT (10.1-12.7) SECONDS INR (0.9-1.3) APTT 37 H (26.4-36.2) SECONDS Sodium (137-145) mmol/L Potassium (3.4-5.1) mmol/L Chloride (98-107) mmol/L Carbon Dioxide (22-32) mmol/L BUN (9-20) mg/dL Creatinine (0.66-1.25) mg/dL Estimated GFR (>60) mL/min BUN/Creatinine Ratio (6-22) Glucose (70-100) mg/dL Calcium (8.4-10.2) mg/dL Magnesium (1.6-2.3) mg/dL Total Bilirubin (0.2-1.3) mg/dL AST (17-59) IU/L ALT (<50) IU/L Alkaline Phosphatase (38-126) U/L Total Creatine Kinase (55-170) U/L CK-MB (CK-2) (<2.37) ng/mL CK-MB (CK-2) Rel Index (1.5-5.0) % Troponin I (0.01-0.034) ng/mL Total Protein (6.3-8.2) g/dL Albumin (3.5-5.0) g/dL Globulin (1.7-4.1) g/dL Albumin/Globulin Ratio (1.0-2.8) Lipase (23-300) U/L SARS-CoV-2 (PCR) Negative (Negative) Imaging Data Chest x-ray: Radiologist's Impression: [address] [address] XRay Report Signed Patient: Be Mclaughlin I MR#: [id number] : 1970 Acct:[id number] Age/Sex: 51 / M Date of Service: 11/12/21 Loc: ED Accession Number: [id number] ?? Procedure: XR chest 1V Ordering Provider: Matthew Crawford MD PROCEDURE:? XR CHEST 1V ? INDICATIONS:? chest pain ? TECHNIQUE:? One view of the chest was acquired.? ? COMPARISON:? None. ? FINDINGS:? ? Surgical changes and devices:? None.? ? Lungs and pleura:? Lungs are clear.? No pleural effusions or pneumothorax.? ? Mediastinum:? Mediastinal contours appear normal.? Heart size is normal.? ? Bones and chest wall:? No suspicious bony lesions.? Overlying soft tissues appear unremarkable.? ? IMPRESSION:? No acute cardiopulmonary pathology. ? ? Dictated by: Aravind Sierra M.D. on 11/12/2021 at 11:45 ? ? Approved by: Aravind Sierra M.D. on 11/12/2021 at 11:45 ? ECG Data Interpretation: Normal sinus rhythm rate [address] elevation or depression. Normal EKG MDM Narrative Medical decision making narrative: Appropriate for transfer to [facility] Emergency Department for cardiac CT scan. At this time patient is stable. In no distress. I did review with Cardiology as well as emergency department at [facility] and he do accept patient. Discharge Plan Departure Patient Disposition: [facility] Clinical Impression: Chest pain Prescriptions: No Action oxycodone-acetaminophen [Percocet] 5 MG/325 MG tablet 1 tab PO PRN PRN (Reason: pain ) Qty: 0 0RF acetaminophen [Mapap (acetaminophen)] 325 mg tablet 650 mg PO TID PRN (Reason: Fever Or Pain) 0RF sumatriptan succinate 6 mg/0.5 mL cartridge 6 mg subcut PRN PRN (Reason: Migraine Headache) 0RF keodfdbdqq-wwesvftnmpbyp-yrnc 50-325-40 mg tablet 1 tab PO Q4H PRN (Reason: as directed) 0RF lidocaine 5 % adhesive patch,medicated 1 patch topical DAILY 0RF lidocaine HCl [Lidocaine Viscous] 2 % solution 1 dose PO DIRECTED 0RF Rx Instructions: prn mouth sore pain. swish and spit. do not swallow gabapentin 100 mg capsule 100 - 300 mg PO BEDTIME 0RF ergocalciferol (vitamin D2) 50,000 unit capsule 50,000 units PO QWEEK 0RF losartan 100 mg Tablet 100 mg PO DAILY 0RF fluticasone propionate [Flonase Allergy Relief] 50 mcg/actuation [place],S uspension 2 spray INTRANASAL DAILY 0RF ondansetron 4 mg tablet,disintegrating 4 mg PO TID-QID PRN (Reason: nausea and vomiting) Qty: 20 0RF clonidine 0.2 mg/24 hr patch weekly 0.2 mg topical QWEEK 0RF ibuprofen 400 mg tablet 800 mg PO TID 0RF prazosin 2 mg capsule 2 mg PO DAILY 0RF Referrals: Evelyn Vidal DO [Primary Care Provider] -
[2021-11-12 11:01] LABS: Add Manual Diff / Slide Review NO; Basophils Absolute Auto 100 /uL (0-100); Basophils Percent Auto 0.8 % (0-2); Eosinophils Absolute Auto 200 /uL (0-450); Hematocrit 47.2 % (41-53); Hemoglobin 15.5 g/dL (13.5-17.5); Lymphocytes Absolute Auto 4100 /uL (1100-4500); Lymphocytes Percent Auto 44.4 % (25-40); Mean Corpuscular HGB Conc 32.8 % (30-36); Mean Corpuscular Hemoglobin 27.3 PG (26-34); Mean Corpuscular Volume 83.3 fL (80-100); Monocytes Absolute Auto 800 /uL (0-900); Monocytes Percent Auto 9.1 % (3-14); Neutrophils Absolute Auto 4100 /uL (1500-7000); Neutrophils Percent Auto 43.7 % (50-75); Platelet Count 223 X10^3/uL (150-400); Red Blood Cell Count 5.66 X10^6/uL (4.5-5.9); Red Cell Distribution Width 14.4 % (11.6-14.8); White Blood Cell Count 9.3 X10^3/uL (4.5-11.0)
[2021-11-12] MEDS: NITROGLYCERIN OINT 1 INCH/GM OINT...G. 0.5 INCH TOP (11:02)
[2021-11-12] MEDS: ASPIRIN 81 MG CHEW TAB 324 MG PO (11:04)
[2021-11-12 11:08] LABS: Prothrombin Time 11.5 SECONDS (10.1-12.7)
[2021-11-12 11:13] LABS: Alanine Aminotransferase 41 IU/L (<50); Albumin 4.9 g/dL (3.5-5.0); Albumin Globulin Ratio 1.3 (1.0-2.8); Alkaline Phosphatase 80 U/L (38-126); Aspartate Aminotransferase 38 IU/L (17-59); BUN Creatinine Ratio 16.1 (6-22); Bilirubin Total 0.5 mg/dL (0.2-1.3); Blood Urea Nitrogen 15 mg/dL (9-20); Carbon Dioxide 26 mmol/L (22-32); Chloride 104 mmol/L (98-107); Creatine Kinase 238 U/L (55-170); Estimated Glomerular Filt Rate > 60 mL/min (>60); Globulin 3.9 g/dL (1.7-4.1); Glucose 89 mg/dL (70-100); HEMOLYSIS < 15 (0-50); Lipase 108 U/L (23-300); Potassium 4.1 mmol/L (3.4-5.1); Sodium 140 mmol/L (137-145); Total Protein 8.8 g/dL (6.3-8.2)
[2021-11-12 11:16] LABS: PTT Partial Thromboplastin Tim 37 SECONDS (26.4-36.2)
[2021-11-12 11:24] LABS: Troponin I < 0.012 ng/mL (0.01-0.034)
[2021-11-12 11:27] LABS: CKMB % Relative Index 0.7 % (1.5-5.0); Creatine Kinase MB 1.61 ng/mL (<2.37)
--- NOTE | 2021-11-12 11:37 | PC.NURSE ---
Pts pain is 0/10 at rest,when he sits forward it is a 4/10 which is better than the 5/10 that it initally was and before ntg paste.
[2021-11-12 12:51] LABS: COVID19 -Nasal RAPID Negative (Negative)
--- NOTE | 2021-11-12 18:10 | PC.NURSE ---
gave report to nelly Barrett in the ED.
== END 2021-11-12 18:07 | disposition short-term general hospital (02) ==
PROVIDERS: Emergency Provider Emergency Medicine; PCP Family Medicine
DX: R07.9 Chest pain, unspecified (principal); R20.0 Anesthesia of skin; I10 Essential (primary) hypertension; Z20.822 Contact with and (suspected) exposure to COVID-19
CPT/HCPCS: 36415; 71045; 80053; 82550; 82553; 83690; 83735; 84484; 85025; 85610; 85730; 87635; 93005; 99284; C9803

== ENCOUNTER 2022-05-16 18:26 | Emergency (ER) | payer OTHER, SELFPAY ==
[2022-05-16 18:47] VITALS: BP 150/83; PULSE 96; RESP 22; TEMP 37.1; O2SAT 97
[2022-05-16] MEDS: KETOROLAC 30 MG/ML VIAL IM (19:04)
[2022-05-16] MEDS: diazePAM 10 MG/2 ML SYRINGE 5 MG IM (19:05)
== END 2022-05-16 22:42 | disposition left against medical advice (07) ==
PROVIDERS: Emergency Provider Emergency Medicine; PCP Family Medicine
DX: M54.6 Pain in thoracic spine (principal); M62.830 Muscle spasm of back
CPT/HCPCS: 99283; J1885; J3360

== ENCOUNTER 2023-04-29 10:59 | Observation (INO) | payer OTHER, SELFPAY ==
[2023-04-29] VITALS (14 sets, daily range): BP systolic 114–145; BP diastolic 60–106; PULSE 78–91; RESP 14–17; TEMP 36.4–37.5; O2SAT 95–99; BMI 30.4
--- NOTE | 2023-04-29 12:31 | DI.CT.S_ITS ---
PROCEDURE: CT ABDOMEN PELVIS W CON INDICATIONS: abdominal pain TECHNIQUE: After the administration of IV contrast, axial sections were acquired from the lung bases to the pubic symphysis. Coronal and sagittal reformats were performed. For radiation dose reduction, the following was used: automated exposure control, adjustment of mA and/or kV according to patient size. COMPARISON: None. FINDINGS: Image quality: Excellent. Lung bases: Unremarkable. Heart: No significant findings. ABDOMEN: Liver: Diffuse patchy fatty liver infiltration is noted. No suspicious liver lesion is seen. Gallbladder: Unremarkable. Biliary ducts: Unremarkable. Pancreas: Unremarkable. Spleen: Unremarkable. Adrenal Glands: Unremarkable. Kidneys and Ureters: Unremarkable. Stomach and Bowel: Stomach, small bowel loops, and colon are unremarkable. A normal appendix is noted. Peritoneum: No abnormal intraperitoneal fluid. No free air. Ventral Wall: No hernia. Abdominal Nodes: No retroperitoneal or mesenteric adenopathy by size criteria. Vessels: Aorta and inferior vena cava are normal in size. PELVIS: Pelvic Organs: Unremarkable. Bladder: Moderate cervical bladder wall thickening is seen. Pelvic Nodes: No enlarged lymph nodes. Miscellaneous: No inguinal hernias are seen. There is a rim enhancing fluid collection seen within the perianal region, as on series 2 image 97, measuring up to 2.9 cm. Moderate surrounding inflammatory change can be seen. Bones: Unremarkable. IMPRESSION: There is a 2.9 cm perianal abscess seen. Moderate circumferential bladder wall thickening is seen. Please correlate with bladder outlet obstruction in a male patient of this age. Additional findings: Fatty liver infiltration Normal appendix Dictated by: Eric Morillo M.D. on 04/29/2023 at 12:27 Approved by: Eric Morillo M.D. on 04/29/2023 at 12:30
[2023-04-29] MEDS: SODIUM CHLORIDE 0.9% 1,000 ML 1000 ML IV (12:44)
[2023-04-29] MEDS: ONDANSETRON 4 MG/2 ML INJ IV (12:45)
[2023-04-29] MEDS: HYDROMORPHONE 0.5 MG INJ IV ×2 (12:45→14:46)
[2023-04-29 13:09] LABS: Add Manual Diff / Slide Review NO; Basophils Absolute Auto 100 /uL (0-100); Basophils Percent Auto 0.7 % (0-2); Eosinophils Absolute Auto 200 /uL (0-450); Eosinophils Percent Auto 2.2 % (2-4); Hematocrit 47.9 % (41-53); Hemoglobin 15.7 g/dL (13.5-17.5); Lymphocytes Absolute Auto 3200 /uL (1100-4500); Lymphocytes Percent Auto 31.3 % (25-40); Mean Corpuscular HGB Conc 32.9 % (30-36); Mean Corpuscular Hemoglobin 27.4 PG (26-34); Mean Corpuscular Volume 83.3 fL (80-100); Monocytes Absolute Auto 900 /uL (0-900); Monocytes Percent Auto 9.3 % (3-14); Neutrophils Absolute Auto 5700 /uL (1500-7000); Neutrophils Percent Auto 56.5 % (50-75); Platelet Count 208 X10^3/uL (150-400); Red Blood Cell Count 5.75 X10^6/uL (4.5-5.9); Red Cell Distribution Width 14.5 % (11.6-14.8); White Blood Cell Count 10.1 X10^3/uL (4.5-11.0)
--- NOTE | 2023-04-29 13:12 | ED_ITS ---
HPI - Skin/Abscess/Foreign Bdy General Chief complaint: Skin/Abscess/Foreign Body Stated complaint: pain since colonoscopy/bump pain in groin 04/12 Time Seen by Provider: 04/29/23 12:27 Source: patient Mode of arrival: Ambulatory History of Present Illness HPI narrative: 52-year-old male nonsmoker with history of migraines presents with a chief complaint of rectal pain and a bump in his groin that has been uncomfortable and present ever since a few days after a colonoscopy. He states he had a colonoscopy on April 12 and was feeling better until 2 days later when he started having rectal pain Related Data Home Medications Medication Instructions Recorded Confirmed oxycodone-acetaminophen 5 mg-325 1 tab PO PRN PRN pain ##0 08/13/17 10/29/18 mg tablet (Percocet) acetaminophen 325 mg tablet 650 mg PO TID PRN Fever Or Pain 10/29/18 10/29/18 [id number]-fzfhwglfkjgvr-bfntyfjn 1 tab PO Q4H PRN as directed 10/29/18 10/29/18 50 mg-325 mg-40 mg tablet ergocalciferol (vitamin D2) 1,250 50,000 units PO QWEEK 10/29/18 10/29/18 mcg (50,000 unit) capsule fluticasone propionate 50 2 spray intranasal DAILY 10/29/18 10/29/18 mcg/actuation nasal spray,suspension (Flonase Allergy Relief) gabapentin 100 mg capsule 100 - 300 mg PO BEDTIME 10/29/18 10/29/18 lidocaine 5 % topical patch 1 patch topical DAILY 10/29/18 04/10/19 lidocaine HCl 2 % mucosal solution 1 dose PO DIRECTED 10/29/18 10/29/18 losartan 100 mg tablet 100 mg PO DAILY 10/29/18 10/29/18 sumatriptan succinate 6 mg/0.5 mL 6 mg SUBCUT PRN PRN Migraine 10/29/18 10/29/18 subcutaneous cartridge (refill) Headache clonidine 0.2 mg/24 hr weekly 0.2 mg topical QWEEK 04/10/19 04/10/19 transdermal patch ibuprofen 400 mg tablet 800 mg PO TID 04/10/19 04/10/19 prazosin 2 mg capsule 2 mg PO DAILY 04/10/19 04/10/19 Previous Rx's Medication Instructions Recorded ondansetron 4 mg disintegrating 4 mg PO TID-QID PRN nausea and 10/29/18 tablet vomiting #20 tabs Allergies Allergy/AdvReac Type Severity Reaction Status Date / Time codeine Allergy Intermediate HIVES Verified 04/29/23 11:33 Review of Systems Review of Systems Narrative: GENERAL: Denies chills, fatigue, malaise, fever, sweats. HEENT: Denies sinus pain, ear pain, sore throat, difficulty swallowing, dizziness. RESPIRATORY: Denies dyspnea, cough, wheezing, hemoptysis, sputum. CARDIOVASCULAR: Denies chest pain, palpitations, orthopnea, edema, GASTROINTESTINAL: See HPI : See HPI MUSCULOSKELETAL: denies weakness, joint pain, or bony pain SKIN: Denies rash, skin lesions, or other NEUROLOGIC: Denies weakness, headache, numbness, change in speech, confusion, seizures, incoordination. PSYCHIATRIC: No concerning psychosocial issues. 12 point review of systems is negative except for those stated above Patient History Social History Smoking Status: Never smoker Smoking Status: Never smoker alcohol intake frequency: 0-2 drinks per day Substance Use Type: does not use Exam Narrative Exam Narrative: GENERAL: [52] year old patient appears stated age. Well-developed patient, in mild distress. Obviously uncomfortable HEAD: Atraumatic. Normocephalic. EYES: Pupils equal round and reactive. Extraocular motions intact. No scleral icterus. No injection or drainage. ENT: Nose without bleeding, purulent drainage. Throat without erythema, tonsillar hypertrophy or exudate. Airway patent. NECK: Trachea midline. Non tender CARDIOVASCULAR: Regular rate and rhythm without murmurs, gallops, or rubs. RESPIRATORY: Clear to auscultation. Breath sounds equal bilaterally. No wheezes, rales, or rhonchi. GASTROINTESTINAL: Abdomen soft, non-tender, nondistended. RECTAL: Significant tenderness on exam, apparent external hemorrhoid versus fistula or tracking from an infectious process EXTREMITIES: No edema or joint tenderness. BACK: Nontender without deformity or crepitance. No flank tenderness. NEURO: AOx3. SKIN: No rash or erythema of visible areas Initial Vital Signs Initial Vital Signs: Vital Signs Temperature 98.7 F 04/29/23 11:34 Pulse Rate 91 H 04/29/23 11:34 Respiratory Rate 17 04/29/23 11:34 Blood Pressure 138/106 H 04/29/23 11:34 Pulse Oximetry 98 04/29/23 11:34 Oxygen Delivery Method Room Air 04/29/23 11:34 Course Orders Ordered: ED Orders 04/29/23 12:31 CT abdomen pelvis w con Stat 04/29/23 12:56 Complete Blood Count AUTO DIFF Stat Comprehensive Metabolic Panel Stat Lactate (Lactic Acid) Stat Lipase Stat 04/29/23 13:45 Urine Culture Stat Urine Microscopic Stat Ondansetron HCl (Ondansetron 4 Mg Odt) 4 mg PO NOW PRN PRN Reason: Nausea And Vomiting Ondansetron HCl (Ondansetron 4 Mg/2 Ml Inj) 4 mg IV NOW PRN PRN Reason: Nausea And Vomiting Last Admin: 04/29/23 12:45 Dose: 4 mg Documented By: NISHI Discontinued Medications Hydromorphone HCl (Hydromorphone 0.5 Mg Inj) 0.5 mg IV NOW ONE Stop: 04/29/23 12:31 Last Admin: 04/29/23 12:45 Dose: 0.5 mg Documented By: NISHI Sodium Chloride (Normal Saline 0.9%) 1,000 mls @ 1,000 mls/hr IV BOLUS ONE Stop: 04/29/23 13:29 Last Admin: 04/29/23 12:44 Dose: 1,000 mls/hr Documented By: NISHI Consultations Consultation #1: Discussed with on-call surgeon Dr. Oswald. He is happy to accept patient on his service, recommends admission, antibiotic coverage with Zosyn, pain control and fluids, patient will be NPO after midnight Vital Signs Vital signs: Vital Signs - 8 hr 04/29/23 11:34 04/29/23 12:58 04/29/23 12:59 Temperature 98.7 F Pulse Rate 91 H 88 Respiratory Rate 17 Blood Pressure 138/106 H 115/83 Pulse Oximetry 98 96 Oxygen Delivery Method Room Air 04/29/23 12:59 04/29/23 13:00 04/29/23 13:18 Temperature Pulse Rate 85 85 78 Respiratory Rate Blood Pressure Pulse Oximetry 95 95 Oxygen Delivery Method 04/29/23 13:19 04/29/23 13:19 04/29/23 13:30 Temperature Pulse Rate 86 80 Respiratory Rate Blood Pressure 145/94 H Pulse Oximetry 96 97 Oxygen Delivery Method 04/29/23 13:31 04/29/23 13:31 04/29/23 13:39 Temperature Pulse Rate 78 Respiratory Rate Blood Pressure 114/77 115/82 Pulse Oximetry 98 Oxygen Delivery Method 04/29/23 13:39 Temperature Pulse Rate 89 Respiratory Rate Blood Pressure Pulse Oximetry 96 Oxygen Delivery Method MDM - Skin/Abscess/Foreign Bdy Lab Data 04/29/23 12:56 04/29/23 12:56 Labs: Lab Results 04/29/23 Range/Units 12:56 WBC 10.1 (4.5-11.0) X10^3/uL RBC 5.75 (4.5-5.9) X10^6/uL Hgb 15.7 (13.5-17.5) g/dL Hct 47.9 (41-53) % MCV 83.3 (80-100) fL MCH 27.4 (26-34) PG MCHC 32.9 (30-36) % RDW 14.5 (11.6-14.8) % Plt Count 208 (150-400) X10^3/uL Neut % (Auto) 56.5 (50-75) % Lymph % (Auto) 31.3 (25-40) % [place] % (Auto) 9.3 (3-14) % Eos % (Auto) 2.2 (2-4) % Baso % (Auto) 0.7 (0-2) % Neut # (Auto) 5700 (7660-1093) /uL Lymph # (Auto) 3200 (1701-1633) /uL [place] # (Auto) 900 (0-900) /uL Eos # (Auto) 200 (0-450) /uL Baso # (Auto) 100 (0-100) /uL Sodium 140 (137-145) mmol/L Potassium 4.2 (3.4-5.1) mmol/L Chloride 98 (98-107) mmol/L Carbon Dioxide 31 (22-32) mmol/L BUN 22 H (9-20) mg/dL Creatinine 1.04 (0.66-1.25) mg/dL Estimated GFR > 60 (>60) mL/min BUN/Creatinine Ratio 21.2 (6-22) Glucose 91 (70-100) mg/dL Lactate 1.2 (0.7-2.1) mmol/L Calcium 10.6 H (8.4-10.2) mg/dL Total Bilirubin 0.3 (0.2-1.3) mg/dL AST 37 (17-59) IU/L ALT 40 (<50) IU/L Alkaline Phosphatase 70 (38-126) U/L Total Protein 9.0 H (6.3-8.2) g/dL Albumin 4.7 (3.5-5.0) g/dL Globulin 4.3 H (1.7-4.1) g/dL Albumin/Globulin Ratio 1.1 (1.0-2.8) Lipase 123 (23-300) U/L Urine Dip Bedside Urine Glucose Negative Bedside Urine Bilirubin - Negative Bedside Urine Ketone - Negative Urine Specific [place] 1.005 Bedside Urine Occult Blood +/- Bedside Urine pH 6.0 Bedside Urine Protein - Negative Bedside Urine Urobilinogen - Negative Bedside Urine Nitrite - Negative Bedside Urine Leukocytes - Negative Esterase MDM Narrative Medical decision making narrative: [52] year old patient presents with worsening rectal and perineal pain after having a colonoscopy Multiple etiologies for patient's symptoms considered including, but not limited to: [perirectal abscess vs. perforation vs. other] Prior Charts reviewed in our EMR Primary Historian: patient Labs reviewed and interpreted by myself: No leukocytosis or left shift Imaging reviewed: Abdomen and pelvis CT demonstrates a perianal abscess upwards of 3 cm Consultations: Dr. Oswald (gen surg) see details above Patient with perianal pain and CT demonstrating abscess will require hospitalization for IV antibiotics and likely drainage of abscess Discharge Plan Departure Patient Disposition: Admitted as Observation Clinical Impression: Abscess, perirectal Admit Date/Time: 04/29/23 13:45
[2023-04-29 13:21] LABS: Lactate (Lactic Acid) 1.2 mmol/L (0.7-2.1)
[2023-04-29 13:22] LABS: Alanine Aminotransferase 40 IU/L (<50); Albumin 4.7 g/dL (3.5-5.0); Albumin Globulin Ratio 1.1 (1.0-2.8); Alkaline Phosphatase 70 U/L (38-126); Aspartate Aminotransferase 37 IU/L (17-59); BUN Creatinine Ratio 21.2 (6-22); Bilirubin Total 0.3 mg/dL (0.2-1.3); Blood Urea Nitrogen 22 mg/dL (9-20); Calcium 10.6 mg/dL (8.4-10.2); Carbon Dioxide 31 mmol/L (22-32); Chloride 98 mmol/L (98-107); Estimated Glomerular Filt Rate > 60 mL/min (>60); Globulin 4.3 g/dL (1.7-4.1); Glucose 91 mg/dL (70-100); HEMOLYSIS < 15 (0-50); Lipase 123 U/L (23-300); Potassium 4.2 mmol/L (3.4-5.1); Sodium 140 mmol/L (137-145)
[2023-04-29] MEDS: PIPERACILLIN/TAZO 4.5 GM in SODIUM CHLORIDE 0.9% 100 ML IV (13:54)
[2023-04-29] MEDS: SODIUM CHLORIDE 0.9% 1,000 ML 125 ML IV ×2 (14:46→22:50)
[2023-04-29 14:51] LABS: Bacteria Urine Occasional (0-1); Culture Indicated Urine Cult Not Indicated; RBC Urine 0-1/HPF (0-5/HPF); Squamous Epithelial Cell Urine 0-1 /HPF (0-5/HPF); WBC Urine None Seen (0-5/HPF)
[2023-04-29] MEDS: CELECOXIB 200 MG CAPSULE 400 MG PO (17:10)
--- NOTE | 2023-04-29 17:35 | PC.NURSE ---
Pt A&Ox4, VSS. Report taken from Brianne in ED and pt arrived via stretcher, able to ambulate to bed. Dilaudid given x2 (see MAR) with no effect. Dr. Oswald called, Celebrex ordered and given. General diet, NPO at midnight.
[2023-04-29] MEDS: BUTALB/APAP/CAFFEINE 50/325/40 TABLET 1 EACH PO (20:27)
[2023-04-29] MEDS: CELECOXIB 200 MG CAPSULE PO (20:33)
[2023-04-30] VITALS (14 sets, daily range): BP systolic 108–164; BP diastolic 64–108; PULSE 63–91; RESP 12–20; TEMP 36.1–36.7; O2SAT 94–99; BMI 30.4
[2023-04-30] MEDS: OXYCODONE IR 5 MG TABLET 10 MG PO ×2 (06:42→10:17)
[2023-04-30] MEDS: SODIUM CHLORIDE 0.9% 1,000 ML 125 ML IV (06:43)
--- NOTE | 2023-04-30 08:44 | PC.NURSE ---
[id number] Pt taken to surgery via bed, no futher pt contact at this time
[2023-04-30] MEDS: LACTATED RINGERS 1,000 ML 42 ML IV (08:50)
[2023-04-30] MEDS: ONDANSETRON 4 MG/2 ML INJ IV ×2 (08:51→20:44)
--- NOTE | 2023-04-30 08:52 | SUR.OPER ---
Lithotomy on padded OR bed, head on pillow, arms secured on padded arm boards at <90 degrees abduction. Legs secured in padded yellow fins stirrups.
--- NOTE | 2023-04-30 09:00 | P.HP_ITS ---
History of Present Illness History of Present Illness Date Patient Seen: 04/30/23 Chief complaint: pain since colonoscopy/bump pain in groin 04/12 Narrative: 52-year-old man underwent a screening colonoscopy April 12, 2023 at [facility] He presented to the emergency department at [facility] yesterday 04/29 with complaint of severe perianal pain without drainage. Imaging CT abdomen pelvis demonstrates a 3 cm perianal abscess. At admission afebrile white blood cell count 10. PFSH Social History household members: spouse and children Smoking Status: Never smoker alcohol intake: never Meds Home Medications and Allergies Home Medications Medication Instructions Recorded Confirmed Type cvovxuahks-vpvhuxqdatqde-zlvancxz 1 tab PO Q4H PRN as directed 10/29/18 04/29/23 History 50 mg-325 mg-40 mg tablet ergocalciferol (vitamin D2) 1,250 50,000 units PO QWEEK 10/29/18 04/29/23 History mcg (50,000 unit) capsule fluticasone propionate 50 2 spray intranasal DAILY 10/29/18 04/29/23 History mcg/actuation nasal spray,suspension (Flonase Allergy Relief) lidocaine 5 % topical patch 1 patch topical DAILY 10/29/18 04/29/23 History losartan 100 mg tablet 100 mg PO DAILY 10/29/18 04/29/23 History sumatriptan succinate 6 mg/0.5 mL 6 mg SUBCUT PRN PRN Migraine 10/29/18 04/29/23 History subcutaneous cartridge (refill) Headache ibuprofen 400 mg tablet 800 mg PO TID 04/10/19 04/29/23 History amlodipine 10 mg tablet 10 mg PO DAILY 04/29/23 04/29/23 History atorvastatin 80 mg tablet 80 mg PO DAILY 04/29/23 04/29/23 History metoprolol succinate 50 mg 100 mg PO QPM 04/29/23 04/29/23 History tablet,extended release 24 hr Allergies Allergy/AdvReac Type Severity Reaction Status Date / Time codeine Allergy Intermediate HIVES Verified 04/29/23 11:33 Exam Vital Signs (past 8 hours): - 04/30/23 01:44 04/30/23 08:29 04/30/23 08:55 Temperature 97.3 F L 97.4 F L 98.1 F Pulse Rate 63 71 68 Respiratory Rate 18 16 16 Blood Pressure 108/64 124/88 140/92 H Pulse Oximetry 94 96 98 Oxygen Delivery Method Room Air Oxygen Flow Rate 0 Oxygen Delivery Method Room Air Oxygen Flow Rate 0 Narrative Exam Narrative: General adult man alert oriented no acute distress Chest nonlabored respiration Abdomen soft nontender nondistended Rectal deferred Extremities warm well perfused Objective Labs 04/29/23 12:56 04/29/23 12:56 Labs: Laboratory Results - last 24 hr 04/29/23 04/29/23 12:56 13:38 WBC 10.1 RBC 5.75 Hgb 15.7 Hct 47.9 MCV 83.3 MCH 27.4 MCHC 32.9 RDW 14.5 Plt Count 208 Neut % (Auto) 56.5 Lymph % (Auto) 31.3 [place] % (Auto) 9.3 Eos % (Auto) 2.2 Baso % (Auto) 0.7 Neut # (Auto) 5700 Lymph # (Auto) 3200 [place] # (Auto) 900 Eos # (Auto) 200 Baso # (Auto) 100 Sodium 140 Potassium 4.2 Chloride 98 Carbon Dioxide 31 BUN 22 H Creatinine 1.04 Estimated GFR > 60 BUN/Creatinine Ratio 21.2 Glucose 91 Lactate 1.2 Calcium 10.6 H Total Bilirubin 0.3 AST 37 ALT 40 Alkaline Phosphatase 70 Total Protein 9.0 H Albumin 4.7 Globulin 4.3 H Albumin/Globulin Ratio 1.1 Lipase 123 Urine RBC 0-1/hpf Urine WBC None seen Ur Squamous Epith Cells 0-1 /hpf Urine Bacteria Occasional (0-1) Ur Culture Indicated? Cult not indicated Assessment & Plan Assessment and plan (1) Abscess, perirectal: Status: Acute Assessment & Plan narrative: 52-year-old man with a perianal abscess following a routine screening colonoscopy. No systemic signs of infection. Discussed recommendations to proceed with rectal examination under anesthesia with incision and drainage. Overview of the procedure was discussed. Procedural risks including bleeding, infection, incontinence, development of perianal fistula discussed. Questions have been answered he is in agreement with this plan. Provides his written and verbal consent to proceed.
[2023-04-30] MEDS: BUPIVACAINE 0.25% (PF) 30 ML, EPINEPHrine 0.15 MG INJ (09:21)
--- NOTE | 2023-04-30 09:29 | P.OP_ITS ---
Operative Date/Time/Diagnoses Date of procedure: 04/30/23 Time of procedure: 09:29 Pre-op diagnosis: Perianal abscess Post-op diagnosis: same Procedure & Clinicians Procedure: Rectal examination under anesthesia. Incision and drainage. Same procedure as scheduled: Yes Indications: 52-year-old man 2 weeks status post colonoscopy at outside institution with a large perianal abscess. Surgeon: Peyman Oswald Anesthesia Type: General Operative Notes Findings: Purulent perianal abscess at the 12 o'clock position Specimen(s): other (Abscess fluid) Estimated Blood Loss (mL): 10 Procedure in detail: Patient was brought to the operating room placed supine on the table. Bilateral lower extremity compression devices were applied. Anesthesia was induced he was intubated with an LMA. He was then prepped and draped in sterile fashion. Time-out performed. We began with an internal examination which demonstrated a fluctuance at the 12 o'clock position superficial with extension of towards the scrotum. 30 mL of 0.25% bupivacaine with epinephrine was injected into the area. A incision over the area of maximal fluctuance within the perineum was made with spontaneous drainage of purulent fluid which was sent for culture. A counter incision was made and the hemostat was used to break up the loculations. A [place] drain was then placed between the initial incision and the counter incision and sutured in placed. He tolerated the procedure well was extubated and transferred to recovery in stable condition. Complications: none Post-operative Condition: stable Disposition: same day surgery
--- NOTE | 2023-04-30 10:24 | CM.DANOTE ---
Initial DCP Assessment Note Reviewed EMR and team rounds for pt's status and anticipated d/c needs. Met with pt and spouse at bedside to introduce self and role. Pt presents as somnolent due to surgery this am, defers to for care planning/needs. Payor: Marian Gibson PCP: Evelyn Vidal Attending: Dr. Oswald Pt is a 52 year-old M admitted after presenting to the ED with rectal pain and a bump in his groin that developed 2-days after his screening colonoscopy on 04/12. CT imaging showeda 3-cm rectal abcess, surgery consult placed. Exploratory rectal exam and I-D performed this morning. Per Dr. Oswald and family, pt will likely d/c tomorrow. Plan is home w/ transporting, no further anticipatory d/c needs expected at this time. CM to continue to follow. Discharge Planning/Care Management CM Discharge Assessment Start: 04/30/23 10:16 Freq: Status: Active Protocol: Document 04/30/23 10:16 DPL (Rec: 04/30/23 10:24 DPL [id number]) Discharge Planning Assessment Assigned Commercial Marketing Specialist RINKU Day Advance Directives? No History Provided By Patient,Significant Other, Medical Record Has Patient been admitted in last 30 No days? Prior Living Arrangements House Household Members spouse,children Type of transporation used prior to Drives own vehicle admit Independent with ADL's Yes Is patient alert and oriented? Yes: Somnolent due to surgery this am. Comment N/A Caregiver for Another No Comment No anticipated d/c needs at this time. Plan is home with family. Barriers to Discharge No Discharge Plan Home Transportation Arrangement Spouse Referrals Initiated None needed Medicare Choice List Provided No Whiteboard Updated in Patient Room with Yes name and ext. # of Commercial Marketing Specialist Review Status In Process Please Provide Date Initial DC 04/30/23 Assessment Was Performed
[2023-04-30] MEDS: HYDROMORPHONE 0.5 MG INJ IV (10:48)
[2023-04-30] MEDS: HYDROMORPHONE 1 MG INJ IV ×3 (11:30→20:18)
[2023-04-30] MEDS: PIPERACILLIN/TAZO 3.375 GM in SODIUM CHLORIDE 0.9% 100 ML IV ×2 (12:28→20:15)
[2023-04-30] MEDS: DOCUSATE 100 MG CAPSULE PO ×2 (12:42→20:17)
[2023-04-30] MEDS: METOPROLOL ER 50 MG TABLET 100 MG PO (17:57)
[2023-04-30] MEDS: BUTALB/APAP/CAFFEINE 50/325/40 TABLET 1 EACH PO (17:58)
[2023-04-30] MEDS: CELECOXIB 200 MG CAPSULE PO (20:17)
[2023-04-30] MEDS: SENNOSIDES 8.6 MG TABLET PO (20:17)
[2023-05-01] MEDS: ONDANSETRON 4 MG/2 ML INJ IV ×2 (00:13→06:03)
[2023-05-01] MEDS: HYDROMORPHONE 1 MG INJ IV (00:13)
[2023-05-01 00:27] VITALS: BP 111/75; PULSE 66; RESP 19; TEMP 36.4; O2SAT 96
--- NOTE | 2023-05-01 00:34 | PC.NURSE ---
Incision to rectum with serosanguinous drainage moderate amount. Pad changed to rectum. Pt was able to void without difficulty C/O pain medicated x 1.
[2023-05-01] MEDS: PIPERACILLIN/TAZO 3.375 GM in SODIUM CHLORIDE 0.9% 100 ML IV (03:41)
[2023-05-01 05:36] VITALS: BP 141/94; PULSE 73; RESP 19; TEMP 36.6; O2SAT 96
[2023-05-01 08:06] VITALS: BP 127/86; PULSE 69; RESP 18; TEMP 37.4; O2SAT 93
[2023-05-01] MEDS: CELECOXIB 200 MG CAPSULE PO (08:59)
[2023-05-01] MEDS: SENNOSIDES 8.6 MG TABLET PO (09:00)
--- NOTE | 2023-05-01 11:34 | PC.NURSE ---
Discharge Note Patient A&O, VSS, RA. Patient agreeable to discharge plan. Discharge packet reviewed with patient, all questions/concerns addressed. PIV discontinued. Patient able to dress self and pack all belongings. Patient taken down via wheelchair to POV.
== END 2023-05-01 11:30 | disposition home or self-care (01) ==
LOC: ED 13:41 → AC 13:47
PROVIDERS: Admitting Provider Surgery; Emergency Provider Emergency Medicine; PCP Family Medicine; Referring Provider Emergency Medicine; Visit Provider Surgery
PROC: (CPT 45990; principal; 2023-04-30 09:00)
DX: K61.0 Anal abscess (principal); B96.29 Other Escherichia coli [E. coli] as the cause of diseases classified elsewhere
CPT/HCPCS: 46050; 36415; 74177; 80053; 81003; 81015; 83605; 83690; 85025; 87070; 87075; 87077; 87086; 87186; 87205; 96361; 96365; 96366; 96375; 96376; 99221; 99284; G0378; J0171; J1170; J2405; J2543; J2704; J3010; Q9967